=== PATIENT | male | born 1940 | race Caucasian/White ===

== ENCOUNTER 2016-11-22 13:17 | Inpatient (IN) | payer OTHER ==
[2016-11-22] VITALS (22 sets, daily range): BP systolic 100–143; BP diastolic 54–100
[~2016-11-22] VITALS: Ht 188 cm; Wt 62.6 kg
--- NOTE | ~2016-11-22 | HC ---
[facility] [place] [place] [address] CONSULTATION Name: PANCHITO LOTT Room #: 246-P [facility] IN .R.#: [id number] Admission: 11/22/16 Attend Phys: Estela Levin Discharge: Date of : 42 Report #: [id number] THIS REPORT FOR: //name// CC: Murali Levin MD DATE OF SERVICE: 11/23/2016 PATIENT OF: Dr. Murali Simmons and Dr. Levin. CHIEF COMPLAINT: This is a very pleasant 76-year-old white male, whom we were asked to evaluate for heme positive stools and anemia on presentation of 6 grams. He has been transfused with 2 units of packed cells and is up to 9.5 grams at this time. The patient denies any bright red blood, maroon stools or melena. He denies any hematemesis. He has had no change in his bowel habits. PAST MEDICAL HISTORY: Significant for peripheral vascular disease and that is what initially led him to the hospital at [facility]. He had been having some chronic ulcerations of his right lower extremity stump, status post bilateral below-knee amputations, and then his right leg became cold and painful. He went to the emergency room and was found to have an occluded right femoral artery. Other past medical history includes hyperlipidemia, hypertension, chronic obstructive pulmonary disease, diabetes mellitus, myocardial infarction x 2, and now he has another myocardial infarction as a non-STEMI with a troponin of 3.3 and no cardiac intervention is anticipated. So, he does have a history of coronary artery disease. He also has a history of chronic kidney disease and over the last 7 years, his creatinine has slowly resumed to a level of 4.2. 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 He has left hemiparesis. He has a history of urinary retention. He has had history of anemia and has been on iron and his iron levels are normal at this time. PAST SURGICAL HISTORY: Significant for bilateral below-knee amputations. ALLERGIES: No known drug allergies. MEDICATIONS: At home included aspirin, , Plavix, tamsulosin, amlodipine, iron, isosorbide, magnesium, metoprolol, multiple vitamins, Zantac, carvedilol, clonidine, hydralazine, sodium bicarbonate, and Tradjenta. In the hospital he is on Pepcid, Protonix, heparin, Lispro insulin, Tylenol, heparin drip, nitroglycerine, Zofran, MiraLax, Kayexalate, IV vancomycin and Ambien. He is not on any medications currently for his C. diff, but we will get him started on some vancomycin p.o. [address] [address] CONSULTATION Name: KAYLIEPANCHITO Room #: 246-P [facility] IN .R.#: [id number] Admission: 11/22/16 Attend Phys: Estela Levin Discharge: Date of : 42 Report #: [id number] SOCIAL HISTORY: Does not smoke, does not drink alcohol. He is a long-term resident. FAMILY HISTORY: Denies any history of colon polyps, colon cancer, Crohn's disease or ulcerative colitis, but I am not certain that this patient is a good historian with regard to his family history. REVIEW OF SYSTEMS: He denied any dysphagia, odynophagia, gastroesophageal reflux, hiatal hernia, peptic ulcer disease. He denied nausea, vomiting, change in appetite, change in weight, jaundice, hepatitis, cholelithiasis, cholecystitis or pancreatitis. He denied any change in bowel habits. He denies hematemesis, hematochezia or melena. He denies any abdominal pain. PHYSICAL EXAMINATION: GENERAL: Reveals a well-developed, very-very thin 76-year-old white male who is in no obvious distress at the time of my examination. He denies any pain in his leg or elsewhere. HEENT: He is normocephalic, atraumatic and anicteric. HEART: Rate and rhythm are regular. LUNGS: Clear, but with decreased breath sounds bilaterally. ABDOMEN: Soft and scaphoid. Bowel sounds are present in all 4 quadrants. There is no palpable organomegaly or mass. There is no tenderness, rebound or guarding. EXTREMITIES: Below-knee amputations with some ulceration on the stump. His right leg is cold. NEUROLOGIC: I did not test him. He appears to have a little contracture that is chronic of the left hand. SIGNIFICANT LABORATORY DATA: On admission to [facility], his potassium was 5.5, but was over 6 down at [facility]. CO2 is 20, BUN 66, creatinine down to 4.24 from 4.5 on admission. AST is 75, ALT 36, total bilirubin is 0.4, alkaline phosphatase 251, calcium 6.8, and albumin 1.3. CPK is 554. Troponin is 3.33. Iron saturation is 36. APTT is 63.2 on a heparin drip. White count 7.8, hemoglobin 9.5, hematocrit 27.8, indices are normal, RDW 14.7, and platelet count 60,000. He is positive for MRSA and positive for C. diff. He has 2+ proteinuria, high pH with greater than 9.0. He has many white cells and bacteria in his urine and 3+ leukocytes, but nitrites are negative. He also has a more of his phosphates and triple phosphates in his urine. Stool is heme positive. IMPRESSION: 1. Severe anemia with heme-positive stools. Hemoglobin now 9.5 after transfusion of 2 units packed cells. Initial hemoglobin was 6. 2. Protein caliber malnutrition, height 6 foot 2 inches and weight 125 pounds. 3. Acute clostridium difficile diarrhea. 4. Positive methicillin-resistant Staphylococcus aureus. [facility] [address] [place] [address] CONSULTATION Name: PANCHITO LOTT Room #: 246-P [facility] IN [facility].#: [id number] Admission: 11/22/16 Attend Phys: Estela Levin Discharge: Date of : 41 Report #: [id number] 5. Chronic renal disease, declining over several years. Current creatinine of 4.2. 6. Chronic urinary retention. He has Sharpe catheter. He has hyperkalemia present on admission at [facility], was treated with Kayexalate. 7. Acute xvp-NL-zoxhwjggc myocardial infarction, troponin 3.3. 8. History of two previous myocardial infarctions. 9. History of cerebro vascular accident with left-sided paralysis. 10. History of a hyperlipidemia. 11. Hypertension. 12. Diabetes mellitus. 13. Chronic obstructive pulmonary disease. 14. Elevated alkaline phosphatase. 15. Elevated AST. 16. Thrombocytopenia, 71,000 platelets. 17. Peripheral arterial disease with bilateral below-knee amputations and now with ischemia of the right stump. RECOMMENDATIONS: My recommendations are as follows: 1. We will proceed with EGD today. The patient is agreeable with this. He does not think he has ever had a colonoscopy. I am not sure he could even tolerate the prep at this time. We will keep him n.p.o. for now for EGD. 2. Continue proton pump inhibitors. 3. We will start oral vancomycin for a C. diff and ID consult for Dr. Powell and for Dr. Harley to see the patient. 4. To check GGTP. 5. Follow LFTs and platelet count. Thank you very much once again for allowing me to participate in his care. <ELECTRONICALLY SIGNED> By: Jojo Potts DO 11/23/16 1431 1059 1331 Jojo Potts DO /nt
--- NOTE | ~2016-11-22 | HC ---
[facility] [place] [place] [address] CONSULTATION Name: PANCHITO LOTT Room #: 246-P [facility] IN ..#: [id number] Admission: 11/22/16 Attend Phys: Estela Levin Discharge: Date of : 41 Report #: [id number] THIS REPORT FOR: //name// CC: Murali Levin DATE OF SERVICE: 11/24/2016 CHIEF COMPLAINT: Multiple ulcerations and ischemic right lower extremity. HISTORY OF PRESENT ILLNESS: This is a 76-year-old white male patient, admitted on 11/22/2016 with ischemia to his right leg. He has had prior bilateral below knee amputations. Has had multiple ulcerations. He is scheduled for a right above knee amputation later today. PAST MEDICAL HISTORY: Positive for diabetes mellitus, hypertension, peripheral vascular disease, cerebrovascular accident with left-sided weakness. He has chronic kidney disease stage 5, history of hyperkalemia, severe peripheral vascular disease. MEDICATIONS: Include tamsulosin, amlodipine, atorvastatin, aspirin, Plavix, iron, Isordil, magnesium, metoprolol, ranitidine, carvedilol, clonidine, hydralazine, bicarbonate and Tradjenta. ALLERGIES: None. FAMILY HISTORY: Unknown. SOCIAL HISTORY: The patient lives in a local nursing care facility. REVIEW OF SYSTEMS: Unobtainable due to the patient's condition. He is unable to answer any questions at this time. PHYSICAL EXAMINATION: VITAL SIGNS: At this time include temperature 94.4 axillary; pulse rate 76; respiratory rate 21, blood pressure 102/66, oxygen saturation 96%. GENERAL: This is a chronically ill-appearing, almost cachectic appearing male patient, appears to be mostly somnolent. HEAD: Normocephalic. NECK: Supple. LUNGS: Diminished. HEART: Regular rhythm. ABDOMEN: Soft. EXTREMITIES: Demonstrate bilateral below knee amputations. He has extensive ulcerations and ischemic changes throughout the right stump site and extending on to the knee and medial thigh. Examination of the left side demonstrates [facility] [address] [place] [address] CONSULTATION Name: PANCHITO LOTT Janet Room #: [address] [place] [address] [place] ..#: [id number] Admission: 11/22/16 Attend Phys: Estela Levin Discharge: Date of : 41 Report #: [id number] ulceration and blistering both on the posterior portion of the left BKA stump as well as anteriorly. There is exposed bone. This would raise concern for underlying osteomyelitis. Left hip demonstrates a fairly large stage 4 pressure ulceration with some bony exposure and significant undermining. It is relatively clean and granulating. He has a small stage 4 sacral pressure ulcer, and unstageable pressure ulcer to the left iliac crest. LABORATORY DATA: Includes sodium 144, potassium 3.6, chloride 110, CO2 23, BUN 59, creatinine 4.1, glucose 132, calcium 6.4, phosphorus 4.6, magnesium 2.0, alkaline phosphatase 220, SGPT 35, GGTP 54, albumin is very low at 1.2. White blood cell count is 8.9 with hemoglobin 9.6, hematocrit 28.3. Platelet count is 48,000. CLINICAL IMPRESSION: 1. Ischemia and ulceration of the right lower extremity. 2. Severe peripheral arterial disease. 3. Stage 4 pressure ulcer to the left greater trochanter. 4. Stage 4 pressure ulcer to the sacrum. 5. Unstageable pressure ulcer to the right iliac crest. 6. Ulcerations to the left below amputation with concern for underlying osteomyelitis. 7. Flexion contractures of bilateral knees. 8. Coronary artery disease. 9. Diabetes mellitus. 10. Chronic obstructive pulmonary disease. 11. Severe protein-calorie malnutrition. RECOMMENDATIONS: The patient is going for an above knee amputation today. Clearly the right leg is not going to be salvageable. He is going to have ongoing problems with wound healing in the left side due to the flexion contracture of the knee. It is unlikely that this area would heal. He may at some point require a higher level amputation on the left as well. We will recommend topical quarter-strength Dakin moist gauze to left hip, bordered foam to the sacrum and iliac crest. Postoperative dressings will be evaluated after he returns from the operating room, involving the right lower extremity. He will need aggressive nutritional support, turning, repositioning every 2 hours. I appreciate being asked to see him in consultation. <ELECTRONICALLY SIGNED> By: Kalia Garrido MD 11/24/16 1122 1013 1059 Kalia Garrido MD /nt
--- NOTE | ~2016-11-22 | HC ---
[facility] [address] [address] CONSULTATION Name: PANCHITO LOTT Room #: 246-P [facility] IN .R.#: [id number] Admission: 11/22/16 Attend Phys: Estela Levin Discharge: Date of : 41 Report #: [id number] THIS REPORT FOR: //name// CC: Murali Levin REASON FOR CONSULTATION: I was asked to evaluate concerning ischemic right lower extremity and C. difficile colitis. HISTORY OF PRESENT ILLNESS: The patient is a 76-year-old who was admitted from [facility] with right femoral artery occlusion. Onset of right BKA stump pain yesterday. Now has a discoloration and a cold leg. In addition to that, he has had diarrhea that is C. difficile positive. He has developed acute renal failure. Has marked anemia, down to 6.7. Thrombocytopenia. He was unable to give me any further details. It is evident that he has chronic kidney disease with a creatinine of 4 about a year ago. PAST MEDICAL HISTORY: Diabetes, hypertension, stroke with left-sided hemiparesis. Coronary artery disease with TN. ALLERGIES: None known. MEDICATIONS: As noted on his MAY, now on enteral vancomycin. FAMILY HISTORY: Noncontributory. SOCIAL HISTORY: Living in [place] [facility] in [place], [place]. REVIEW OF SYSTEMS: There has been no cough or sputum production. No abdominal pain, nausea or vomiting. PHYSICAL EXAMINATION: VITAL SIGNS: Afebrile, heart rate 80, blood pressure 142/82. Room air saturation was 100%. ACCESS: IV site was unremarkable, an indwelling Sharpe catheter. HEENT: Unremarkable. NECK: Supple. LUNGS: Clear. HEART: Regular, without murmur. ABDOMEN: Firm, nontender, no hepatosplenomegaly or mass. I could not palpate a pulse in his right groin. His right lower extremity BKA was ecchymotic up to his knee. Stump was cold. Sugar were some bloody drainage to the wound distally. He also had a shallow wound to the stump of his left lower extremity. Pulse in this left side femoral region was a 2+. He had a fairly large wound to his left greater trochanter. I was unable to roll him over to look at his sacrum. [facility] [address] [place] [address] CONSULTATION Name: PANCHITO LOTT Room #: [facility] [place] [facility].#: [id number] Admission: 11/22/16 Attend Phys: Estela Levin Discharge: Date of : 41 Report #: [id number] LABORATORY STUDIES: Sodium 144, potassium 4.5, bicarbonate of 20, creatinine was 4.2, AST 75, bilirubin 0.4, alkaline phosphatase 251, ALT 36, albumin of 1.3. Troponin 3.3. Hemoglobin 9.5 up from 6.4 on admission; white count 7.8; platelet count 60,000. MRSA screen positive. C. difficile PCR was positive. I did not have a differential on the CBC. Urinalysis, many wbc's, rbc's and bacteria. There is no urine or blood cultures yet obtained. IMPRESSION: Underlying diabetic with cardiac and vascular disease with ischemia of the right lower extremity, anemia, non-ST elevation myocardial infarction, chronic kidney disease, hypertension with urinary tract infection and Clostridium difficile colitis contributing to the right lower extremity ischemia. Recommend culturing blood and urine. Begin broad antibiotic coverage and antibiotic coverage for Clostridium difficile colitis. Obtain the differential. Further imaging studies of his right lower extremity per Cardiovascular, Medicine and Surgery. Cardiovascular surgery has also seen the patient and is following. <ELECTRONICALLY SIGNED> By: Darci Harley MD 11/24/16 1613 1254 1502 Darci Harley MD /nt
--- NOTE | ~2016-11-22 | P ---
[facility] [place] [place] [address] PROCEDURE REPORT Name: PANCHITO LOTT Room #: 246-P [facility] IN M.R.#: [id number] Admission: 11/22/16 Attend Phys: Estela Levin Discharge: Date of : 41 Report #: [id number] THIS REPORT FOR: //name// CC: Murali Levin MD DATE OF SERVICE: 11/23/2016 PROCEDURE: Diagnostic EGD. PATIENT OF: Dr. Murali Simmons and Dr. Estela Levin. INDICATION FOR PROCEDURE: This patient has had a drop in hemoglobin, uncertain etiology. He has been on Plavix. He denies any hematemesis, hematochezia, or melena, but he does have heme positive stool. He has had a very recent non-STEMI acute myocardial infarction. Informed consent for this procedure was obtained prior to the administration of any medication. The risks of the procedure, which include bleeding, perforation, infection, complications of sedation, and the possibility I could miss something have been explained to the patient and he has indicated his consent to me and his consent for the procedure was obtained from his DPOA. Propofol was slowly titrated before and during this procedure for the patient comfort by the anesthesia service. The Track the Betn upper videoscope was introduced through the upper esophageal sphincter and advanced under direct visualization to the descending duodenum. Findings are noted on withdrawal of the scope. The second portion of the duodenum appears normal. The portion of the duodenum just distal to the bulb is edematous, mildly erythematous and obstructs the lumen somewhat. The scope passes easily through this area, so there was no evidence of any obstruction here. I do not see any ulcerations in the folds involving this edema, but I suspect there is some kind of inflammation here. The duodenal bulb shows some patchy erythema. Pylorus, normal mucosa. Antrum, normal mucosa. Body, normal mucosa. Cardia and fundus, normal mucosa. Retroflex view did not reveal any abnormalities. The scope was withdrawn into the esophagus. The Z-line is appropriately located at the top of the gastric folds and appears normal. The esophageal mucosa appears normal throughout its entirety. The scope was withdrawn. The patient was recovered in his room in intensive care. He tolerated the procedure well. IMPRESSION: Edematous area in the post-bulbar region, uncertain etiology. We will check a stool for H. pylori antigen. We will continue the proton pump inhibitors. We will start him on a full liquid diet, advance as tolerated. We will monitor his H and H closely. Currently, he is on Plavix, so no biopsies [address] [address] PROCEDURE REPORT Name: PANCHITO LOTT Janet Room #: 246-P [facility]..#: [id number] Admission: 11/22/16 Attend Phys: Estela Levin Discharge: Date of : 41 Report #: [id number] were done. Thank you very much once again for allowing me to participate in his care, Dr. Levin and Dr. Simmons. <ELECTRONICALLY SIGNED> By: Jojo Potts DO 11/23/16 2353 1435 1613 Jojo Potts DO /nt
--- NOTE | ~2016-11-22 | EKG ---
[address] [place] [address] ELECTROCARDIOGRAM REPORT Name: PANCHITO LOTT Room #: 246-P [facility] IN M.R.#: [id number] Admission: 11/22/16 Attend Phys: Estela Levin Discharge: Date of : 41 Report #: [id number] THIS REPORT FOR: //name// [facility] Test Date: 2016-11-22 Test Time: 21:20:37 Pat Name: PANCHITO LOTT Department: Room: 246 P Gender: M Coil Inspector: Letitia SHAFFER : 1940 Requested By: Luis Crow Order Number: [id number] MD: Christian Mock Measurements Intervals [place] Rate: 80 P: 56 KS: 248 QRS: -100 QRSD: 146 T: 45 QT: 465 QTc: 537 Interpretive Statements Sinus rhythm Prolonged [place] interval Right bundle branch block Probable lateral infarct, old No previous ECG available for comparison Electronically Signed On 11-23-2016 8:22:25 CDT by Christian Mock [email or web address] <ELECTRONICALLY SIGNED> By: Christian Mock MD, [facility] 11/23/16821 19 19 Christian Mock MD, [facility] /EPI
--- NOTE | ~2016-11-22 | EKG ---
[address] [place] [address] ELECTROCARDIOGRAM REPORT Name: PANCHITO LOTT Room #: 246-P ADM IN M.R.#: [id number] Admission: 11/22/16 Attend Phys: Estela Levin Discharge: Date of : 42 Report #: [id number] THIS REPORT FOR: //name// [facility] Test Date: 2016-11-23 Test Time: 06:46:33 Pat Name: PANCHITO LOTT Department: Room: 246 P Gender: M Library Services Assistant: faby : 1940 Requested By: Luis Crow Order Number: [id number] MD: Christian Mock Measurements Intervals [place] Rate: 79 P: 2 TX: 243 QRS: -86 QRSD: 139 T: 69 QT: 466 QTc: 535 Interpretive Statements Sinus rhythm Prolonged [place] interval RBBB and LAFB No previous ECG available for comparison Electronically Signed On 11-23-2016 8:23:11 CDT by Christian Mock [email or web address] <ELECTRONICALLY SIGNED> By: Christian Mock MD, [facility] 11/23/16 0823 0646 0646 Christian Mock MD, [facility] /EPI
--- NOTE | ~2016-11-22 | HC ---
[facility] [place] [address] CONSULTATION Name: PANCHITO LOTT Room #: 246-P ADM IN M.R.#: [id number] Admission: 11/22/16 Attend Phys: Estela Levin Discharge: Date of : 42 Report #: [id number] THIS REPORT FOR: //name// CC: Dinesh Jaime MD DATE OF SERVICE: 11/22/2016 REASON FOR CONSULTATION: Renal failure. HISTORY OF PRESENT ILLNESS: This is a 76-year-old male who was transferred to [facility] today after being seen in the Emergency Room at [place]. He came in because he has bilateral below the knee amputations, but has a cold and an ischemic right thigh, knee, and right xcevb-rme-leqv stump. He is currently in the intensive care unit. The patient is not certain where he is, he is a poor historian. He cannot tell me when his legs were amputated. He says he has never heard of kidney problems before. In spite of that, I was able to document through our outpatient records at the office that he has been followed for many years by Dr. William Jaime, formally of [facility]. The patient has chronic kidney disease, which has been progressive over the years. Looking back at labs, he had a creatinine level a year ago of 4.1. He has had very gradual progression of his elevated creatinine, dating back to at least 2009, which is far back as I can access those records. Over that time, he has had a progressive increase from a creatinine of 1.9 up to the current level of 4. When he was seen in the Emergency Room at [place], he also had a potassium level of 6.1, he was given Kayexalate. Upon arrival here, he had a potassium level of 5.5, bicarbonate of 19, BUN 73, creatinine of 4.5. The patient also has anemia with a hemoglobin of 6.4, hematocrit 19.9 and platelets 71,000. Again, the patient is a poor historian. He states his appetite has been down. He thinks he is losing weight. He says he is just not hungry. Denies nausea or vomiting. Denies dyspnea, cough, chest pain or palpitations. He is chronically incontinent of urine due to urinary retention and has a chronic Sharpe in place. PAST MEDICAL HISTORY: He has had longstanding diabetes mellitus, also longstanding hypertension. 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 MEDICATIONS ON ADMISSION: This is through a compilation of 2 or 3 different lists but from what I can tell, he is on tamsulosin 0.4 mg daily, amlodipine 10 mg daily, aspirin 81 mg daily, atorvastatin 40 mg daily, Plavix 75 mg daily, iron 325 mg daily, isosorbide mononitrate 30 mg daily, magnesium 400 mg daily, metoprolol 25 mg daily, multivitamin daily, ranitidine 150 mg daily, carvedilol [address] [address] CONSULTATION Name: PANCHITO LOTT Janet Room #: 246-P [facility] IN [facility]#: [id number] Admission: 11/22/16 Attend Phys: Estela Levin Discharge: Date of : 41 Report #: [id number] 12.5 mg b.i.d., clonidine 0.2 mg b.i.d., hydralazine 100 mg t.i.d., sodium bicarbonate 650 mg b.i.d., Tradjenta 5 mg daily. ALLERGIES: No known medical allergies. FAMILY HISTORY: Unavailable. SOCIAL HISTORY: The patient has been living in a care center in [place], [place]. REVIEW OF SYSTEMS: Denies dyspnea, cough or chest pain, says his appetite is poor. Denies nausea or vomiting; unaware of bowel habits, says he has a chronic Sharpe in place, has the right leg pain. Unaware of fevers, chills or sweats. PHYSICAL EXAMINATION: GENERAL: Chronically ill debilitated male lying in the ICU. He has a contracture of the left arm, both legs have the BKA as noted above. He is somewhat somnolent. VITAL SIGNS: Blood pressure 146/81, heart rate is in the 80s. HEENT: Shows pupils are equal and reactive. Sclerae are nonicteric. Oral mucosa is moist. NECK: Veins are not distended. Neck is supple. CHEST: Shows shallow respirations bilaterally. I hear no rales, rhonchi or wheezes. HEART: Has a regular rate and rhythm. ABDOMEN: Soft. I hear a few bowel sounds present. There is not much abdominal structure I am able to easily feel a pulsatile aorta in the left side of the abdomen. EXTREMITIES: Show bilateral below the knee amputations, right thigh stump and knee are all cold to the touch and poorly perfused. Left leg and thigh are warmer. Again, he has a contracture to the left, he is able move the left upper extremity and he is able right upper extremity. LABORATORY DATA: Sodium 145, potassium 5.5, chloride 114, bicarbonate 19, BUN 73, creatinine 4.5, glucose 65, total protein 4.3, albumin 1.4, calcium 7.2, total bilirubin 0.3. CPK 686. White count 6.5, hemoglobin 6.4, hematocrit 19.9 and platelets 71,000. ASSESSMENT: 1. Chronic kidney disease stage 5. There is nothing to point to acute kidney injury here. This is all chronic. It has been well demonstrated in our outpatient records. This patient has progressive chronic renal failure. The big question at this time is whether he really is uremic. He has a lack of appetite, but suggests the same. He has very poor muscle mass, so this creatinine level I expect is actually even a representation of worst renal function than we originally thought. He is chronically on bicarbonate, he is [facility] [address] [place] [address] CONSULTATION Name: KAYLIEPANCHITO Room #: 246-P [facility] IN ..#: [id number] Admission: 11/22/16 Attend Phys: Estela Levin Discharge: Date of : 41 Report #: [id number] not particularly acidotic at this time. He does have some mild hyperkalemia, which has already been treated. He has no EKG changes. I will put him on a small amount of IV fluids and we will make a bicarbonate containing IV fluids with the CPK mildly up and having an ischemic leg. 2. Hyperkalemia, mild, no EKG changes. He already got Kayexalate, we will give him a little bit of volume. We will give him a little bicarbonate, this should come down. 3. Anemia, severe; chronically on iron. We will check iron levels and erythropoietin level. This could all be related to his chronic kidney disease more than anything else. 4. Ischemic right leg, evaluation ongoing. He is nonambulatory and he is poorly functional. I cannot imaging any limb salvage maneuvers would be helpful at this point, probably just needs extension of his amputation to and above the knee and/or higher level. 5. Severe peripheral vascular disease. 6. Prior cerebrovascular accident with left hemiparesis. It is pertinent that I talk to the IV nurse. He actually has an arm that would be amenable to getting an upper arm graft placed on the left, which is his arm that has the CVA, so we could use the right arm for IV access today. 7. Overall, the patient appears to be in fairly poor condition chronically. I am not able to have much of a discussion with him but when we did talk about it, he has heard of dialysis before and said that if need be, he would want to do dialysis, although at this point I cannot imagine this patient being on chronic dialysis. We will see how he responds overnight and make further decisions on upcoming days. We will standby in his care. <ELECTRONICALLY SIGNED> By: Lencho Fisher MD 11/26/16 0829 [id number] Lencho Fisher MD /nt
--- NOTE | ~2016-11-22 | O ---
[facility] [place] [address] OPERATIVE REPORT Name: PANCHITO LOTT Room #: 246-P [facility] IN M.R.#: [id number] Admission: 11/22/16 Attend Phys: Estela Levin Discharge: Date of : 41 Report #: [id number] THIS REPORT FOR: //name// CC: Murali Troy Estela Levin DATE OF SERVICE: 11/24/2016 PREOPERATIVE DIAGNOSIS: Right leg gangrene. POSTOPERATIVE DIAGNOSIS: Right leg gangrene. PROCEDURE: Right peksw-qxo-rtzj amputation. SURGEON: Markie Hernandez MD MAGNETIC PROSPECTOR: TONY Rivera ANESTHESIA: General. ESTIMATED BLOOD LOSS: Minimal. DRAINS: . TOURNIQUET TIME: Zero, there was no tourniquet. DESCRIPTION OF PROCEDURE: The patient was brought to the operating room where he was placed under general anesthesia. Once under adequate general anesthesia, his right lower extremity was prepped and draped in sterile manner. The extremity was then approached through a fishmouth type incision through the mid thigh. Dissection was carried down to the adductor canal where the vessels were then identified, clamped, and suture ligated with 0 silk suture. Sharp dissection was taken down to the bone and the bone was then transected with an oscillating saw. Once complete, the wound was irrigated copiously and closed with #1 Vicryl to bring the adductors over to the femur as a myodesis. One Vicryl was then used to close the deep fascia, 2-0 Vicryl in subcutaneous tissues and rita were used for the skin. A Hemovac drain had been placed prior to wound closure. There were no complications from the procedure. Wound was dressed with Xeroform, 4 x 4s, and sterile soft compressive dressing was placed. There were no complications from the procedure. The patient tolerated the procedure well and went to the intensive care unit without incident. By: [id number] [id number] Markie Hernandez MD /nt
--- NOTE | ~2016-11-22 | 2DMMODE ---
[facility] [address] [place] [address] 2 D/M-MODE ECHOCARDIOGRAM Name: PANCHITO LOTT Room #: 246-P [facility] IN ..#: [id number] Admission: 11/22/16 Attend Phys: Estela Carvalho Discharge: Date of : 42 Date of Service: 11/23/16 1011 Report #: [id number] THIS REPORT FOR: //name// APPROVED REPORT Study performed: 11/23/2016 08:24:13 EXAM: Comprehensive 2D, Doppler, and color-flow Echocardiogram Patient Location: Bedside Room #: 246 Status: routine BSA: 1.71 HR: 105 bpm BP: 103/68 mmHg Other Information Study Quality: Technically Limited Indications Chest Pain 2D Dimensions RVDd: 33.88 mm LVEF(%): 68.54 (>50%) IVSd: 18.95 (7-11mm) LVOT Diam: 21.55 (18-24mm) LVDd: 48.68 mm PWd: 15.59 (7-11mm) Ascending Ao: 35.59 (22-36mm) LVDs: 29.98 (25-40mm) Aortic Root: 33.23 mm Albarado's LVEF: 68.54 % Volumes Left Atrial Volume (Systole) Single Plane 4CH: 64.85 mL Single Plane 2CH: 76.73 mL LA ESV Index: 46.00 mL/m2 Aortic Valve AoV Peak Chris.: 1.37 m/s AO Peak Gr.: 7.48 mmHg LVOT Max P.10 mmHg LVOT Max V: 0.88 m/s IRAIDA Vmax: 2.35 cm2 Mitral Valve IVRT: 83.04 ms Pulmonary Valve [facility] [address] [address] 2 D/M-MODE ECHOCARDIOGRAM Name: PANCHITO LOTT Janet Room #: [address] [place] [address] [place] [facility]#: [id number] Admission: 11/22/16 Attend Phys: Estela Carvalho Discharge: Date of : 42 Date of Service: 11/23/16 1011 Report #: [id number] PV Peak Chris.: 0.65 m/s PV Peak Gr.: 1.71 mmHg Tricuspid Valve TR Peak Chris.: 2.83 m/s RAP Estimate: 5.00 mmHg TR Peak Gr.: 32.12 mmHg PA Pressure: 37.00 mmHg Left Ventricle The left ventricle is normal size. Hypokinesis involving the mid to distal anterolateral wall, septum, and apex. Moderate concentric left ventricular hypertrophy. The left ventricular systolic function is moderately depressed LVEF is 35-40%. This study is not technically sufficient to allow evaluation of the LV diastolic function. Right Ventricle The right ventricle is normal size. The right ventricular systolic function is normal. Atria Left atrium is dilated. The right atrium size is normal. Aortic Valve Aortic valve is calcified. Trace aortic regurgitation. No stenosis Mitral Valve Mitral valve leaflets are thickened. Mild mitral annular calcification There is no mitral valve regurgitation noted. No evidence of mitral valve stenosis. Tricuspid Valve The tricuspid valve is normal in structure. There is trace tricuspid regurgitation. The right atrial pressure is estimated at 5 mmHg. There is mild pulmonary hypertension. Pulmonic Valve The pulmonary valve is normal in structure. There is no pulmonic valvular regurgitation. Great Vessels The aortic root is normal in size. IVC is not well visualized. Pericardium There is no pericardial effusion. Left pleural effusion noted. [facility] [address] [place] [address] 2 D/M-MODE ECHOCARDIOGRAM Name: PANCHITO LOTT Room #: 246-P [facility] IN .R.#: [id number] Admission: 11/22/16 Attend Phys: Estela Carvalho Discharge: Date of : 42 Date of Service: 11/23/16 1011 Report #: [id number] <Conclusion> The left ventricular systolic function is moderately depressed Hypokinesis involving the mid to distal anterolateral wall, septum, and apex. Moderate concentric left ventricular hypertrophy. LVEF 35-40%. Left atrium is dilated. Aortic valve is calcified. No stenosis. Trace insufficiency Mitral valve leaflets are thickened. Mild mitral annular calcification. No mitral valve regurgitation noted. Pulmonary artery pressure of 40mmHg There is no pericardial effusion. <ELECTRONICALLY SIGNED> By: Christian Mock MD, [facility] 11/23/16 1011 1011 1011 Christian Mock MD, [facility] /INF
--- NOTE | ~2016-11-22 | HC ---
[facility] [place] [address] CONSULTATION Name: PANCHITO LOTT Janet Room #: 455-P [facility] IN ..#: [id number] Admission: 11/22/16 Attend Phys: Estela Levin Discharge: 11/28/16 Date of : 41 Report #: [id number] THIS REPORT FOR: //name// CC: Murali Levin PAST MEDICAL HISTORY: Hypertension, hyperlipidemia, peripheral vascular disease, diabetes, prior stroke with subsequent contracture, bilateral below-knee amputation, bedridden status, history of recent right femoral artery occlusion, history of myocardial infarction, acute renal insufficiency, chronic kidney disease, anemia, thrombocytopenia, gastroesophageal reflux disease, COPD, chronic malnutrition. SOCIAL HISTORY: The patient presently lives in a fdc. He states he has a and he has a son who visits him. Denies any recent tobacco, alcohol or drug abuse. MEDICATIONS: Vancomycin, Lipitor, Zosyn, nitroglycerin, metoprolol, Protonix, insulin, heparin which was recently discontinued, Tylenol, these are inpatient medications. PAST SURGICAL HISTORY: Previous bilateral below-knee amputations, which he states were done greater than 10 years ago. There were medical records to suggest this was in 1973 as a result of complications from diabetes. ALLERGIES: No known drug allergies. FAMILY HISTORY: Noncontributory. REVIEW OF SYSTEMS: CONSTITUTIONAL: Positive for recent right leg pain. Positive for malnutrition. He denies fever or chills or diaphoresis. EYES: Denies any eye pain. HENT: Denies ear infections or headache. RESPIRATORY: He has a cough currently, denies shortness of breath. CARDIOVASCULAR: He presently denies chest pain or palpitations. GASTROINTESTINAL: He denies any abdominal pain, nausea or vomiting presently. There is a history of anemia that required EGD earlier today. GENITOURINARY: He is being treated for the urinary tract infection, but denies urgency or burning. He has a Sharpe catheter in place. MUSCULOSKELETAL: He states he does not have significant pain presently. SKIN: Positive open wounds on the right lower extremity. NEUROLOGICAL: He is wheelchair dependent and primarily bedbound. He denies numbness or tingling presently. PSYCHIATRIC: Denies any hallucinations. ENDOCRINE: Denies unexplained weight gain or loss. HEMATOLOGIC: He is noted to have bruising recently as well as anemia. [address] [address] CONSULTATION Name: PANCHITO LOTT Janet Room #: 455-P [facility] IN ..#: [id number] Admission: 11/22/16 Attend Phys: Estela Levin Discharge: 11/28/16 Date of : 41 Report #: [id number] ALLERGY AND IMMUNOLOGY: Denies any rashes or pruritus. HISTORY OF PRESENT ILLNESS: The patient is a 76-year-old male with multiple medical comorbidities including diabetes, COPD, peripheral arterial disease, prior stroke, prior below-knee amputation bilaterally and presented to this hospital yesterday; comes with report of a right femoral arterial occlusion. He, at that time, was having significant pain in his right leg. He was evaluated by Vascular Surgery who felt that there was no intervention that was warranted due to his significant medical risks, overall health and poor distal vascularity. He has a nonhealing wound on the right leg and has recently developed some purple discoloration of the leg. Pain has improved since his initial presentation. He was placed on heparin drip, this has been discontinued. He underwent EGD earlier today and discussion is for possible colonoscopy as well due to anemia and concerns of GI bleeding. PHYSICAL EXAMINATION: VITAL SIGNS: Temperature most recently 36.6, T-max 36.9, blood pressure 104/65, pulse 83, respiration rate 15. GENERAL: This is a very cachectic, thin and frail appearing, lying supine in the hospital bed. He is awake, alert and oriented, in no acute distress. He communicates appropriately. HEENT: He makes good eye contact. He is noted to have poor dentition and temporal wasting. EXTREMITIES: Bilateral upper extremities show no signs of acute orthopedic pathology. Left lower extremity, he has a palpable femoral pulse. He has a superficial wound over the distal end of the residual limb, which measures 2 x 2 cm and is dressed with wound care. There is no sign of infection. Right lower extremity with palpable femoral pulse. No sensory changes. There are skin changes noted with purple bruising along the thigh and along the distal portion of the residual limb. There is muscle wasting present. He has flexion contracture of the knee and of the hip. There is a large wound superficially at the residual limb with a foul odor and has a chronic nonhealing appearance to it. LABORATORY VALUES: White blood cell count 7.8, platelet count 60, hematocrit 27.8 after receiving blood transfusion. IMAGING: No present imaging. MICROBIOLOGY: Blood cultures are negative thus far. ASSESSMENT: A 76-year-old male with multiple medical comorbidities, peripheral arterial disease status post prior bilateral below-knee amputations with the nonhealing wound in the right lower extremities. He presented to this hospital with report of a femoral artery occlsio in severe pain. His pain is improved at time of evaluation and records indicate he [address] [address] CONSULTATION Name: PANCHITO LOTT Room #: 455-P [facility] IN [facility]#: [id number] Admission: 11/22/16 Attend Phys: Estela Levin Discharge: 11/28/16 Date of : 41 Report #: [id number] has a palpable femoral pulse. PLAN: I had a discussion with the patient about his leg. Due to his poor vascularity, we are in agreement with the Vascular Service that there is a low likelihood that this wound will heal on its own. Therefore, I recommended to the patient definitive treatment as an above-knee amputation. The patient understands that there is a risk of increasing pain as well as infection and sepsis in the condition of the leg. For these reasons, he requested proceeding with surgery. I discussed with him the significant risk involved with his medical comorbidity including bleeding, pulmonary disease including . He understands these risks and wished to move forward. I also called his son and discussed with him his father's wishes and answered his questions at the patient's request. We will plan on moving forward with surgery when we are able and are considering tomorrow. <ELECTRONICALLY SIGNED> By: Walt Sen MD 12/01/16 0804 17 0300 Walt Sen MD /nt
--- NOTE | ~2016-11-22 | S ---
[facility] [place] [address] SURGICAL PATH RPT PROCEDURE Name: PANCHITO LOTT Room #: 455-P [facility] IN M.R.#: [id number] Admission: 11/22/16 Date of : 42 Discharge: 11/28/16 Report #: [id number] Path Case #: [id number] PATHOLOGY REPORT COLLECTION DATE: 11/24/2016 RECEIVED DATE: 11/24/2016 SUBMITTING PHYS: Dr. Markie Hernandez OTHER PHYS: Dinesh Alcaraz MD SPECIMEN(S) RECEIVED: A.Right leg * * * * * * * * * * * * FINAL DIAGNOSIS: "Right leg", amputation: - Skin and subcutaneous tissue with infarction, fat necrosis and subepithelial fresh hemorrhage; surgical margins without significant inflammation. - Skeletal muscle with marked atrophy. - Vessels with marked calcific atherosclerosis. (CLW:micaela; 11/28/2016) PATHOLOGIST: Analilia Hebert M.D. REPORT ELECTRONICALLY SIGNED BY: Analilia eHbert M.D. DATE/TIME: 11/28/2016 22:55 * * * * * * * * * * * * GROSS PATHOLOGY: The specimen is received in formalin, labeled "Panchito Lott, right leg" and consists of a leg (stump) amputated above the knee. The specimen is status post below knee amputation. It measures 31 cm from proximal cutaneous margin to stump and varies in diameter from 7.0 cm to 11.0 cm. There is 3.5 cm of femur extending above the cutaneous/soft tissue margins. The distal and (stump) shows a black iraheta and red maroon discoloration consistent with gangrene measuring up to 6.5 cm greatest dimension. There is black discoloration over the patella measuring 3.7 cm in greatest dimension. There is marked skin sloughing identified. There are no open wounds. The vascular margin (popliteal artery) is markedly occluded with at least 95% stenosis of lumen. Sectioning the distal end reveals underlying soft tissue necrosis. The vascular structures of the lower leg show marked atherosclerosis with at least 90% stenosis of lumina. No soft tissue lesions are identified. The surgical margin shows areas of viable tissue and grossly nonviable tissue. Home School Teacher sections are submitted A1-A4. A1 popliteal artery (decal) [address] [place] [address] SURGICAL PATH RPT PROCEDURE Name: PANCHITO LOTT Room #: [address] [place] [address]#: [id number] Admission: 11/22/16 Date of : 41 Discharge: 11/28/16 Report #: [id number] Path Case #: [id number] A2 vascular structures lower leg (decal) A3 gangrene A4 margin (skin and skeletal muscle) (ALEJO; 11/27/2016) CLINICAL HISTORY: Gangrene right leg INITIAL CPT CODE(S): A; 54239, 57167 Professional services performed by [facility] at [address] [place] [place] [address] Technical services performed by [facility] at [address] [place] [address], [address], [place] [address]. [facility] [address] [place] [address] PHONE: [phone] DIRECTOR: Zacarias Weinberg M.D. * * * END OF REPORT * * *
[2016-11-22 17:11] LABS: RDW 15.1 % (10.5-14.5)
[2016-11-22 17:13] LABS: MCH 30.3 pg (26.0-34.0); MCHC 32.4 g/dL (28.0-37.0); MCV 93.6 fL (80.0-100.0); RBC 2.13 mil/uL (4.50-6.00); WBC 6.5 thou/uL (4.0-11.0)
[2016-11-22 17:18] LABS: HEMATOCRIT 19.9 % (42.0-52.0); HEMOGLOBIN 6.4 gm/dL (14.0-18.0)
[2016-11-22 17:24] LABS: ALBUMIN 1.4 g/dL (3.4-5.0); CALCIUM 7.2 mg/dL (8.5-10.1); CREATININE 4.5 mg/dL (0.7-1.3); POTASSIUM 5.5 mmol/L (3.5-5.1); TOTAL BILIRUBIN 0.3 mg/dL (<0.1-1.0); TOTAL PROTEIN 4.3 g/dL (6.4-8.2)
[2016-11-22 18:52] LABS: % SATURATION 36 % (20-39); IRON 24 ug/dL (65-175); TIBC 67 ug/dL (250-450); UIBC 43 ug/dL
[2016-11-22 19:54] LABS: URINE BILIRUBIN NEGATIVE (Negative); URINE BLOOD 2+ (Negative); URINE COLOR YELLOW; URINE GLUCOSE-RANDOM* NEGATIVE (Negative); URINE KETONES NEGATIVE (Negative); URINE NITRITE NEGATIVE (Negative); URINE PROTEIN (DIPSTICK) 2+ (Negative); URINE SPECIFIC GRAVITY <= 1.005 (1.003-1.035); URINE UROBILINOGEN 0.2 E.U./dl (0.2-1.0)
[2016-11-22 20:08] LABS: BACTERIA >30 Many /HPF (None Seen); CASTS None Seen /LPF (None Seen); SQUAMOUS 0-3 Few /LPF (0-3); URINE RBC >20 Many /HPF (0-2); URINE WBC >25 Many /HPF (0-5)
[2016-11-22 20:09] LABS: AMORPHOUS PHOSPHATES Many /LPF (None Seen)
[2016-11-23] VITALS (119 sets, daily range): BP systolic 67–153; BP diastolic 33–102
[2016-11-23 02:43] LABS: HEMATOCRIT 27.8 % (42.0-52.0); HEMOGLOBIN 9.2 gm/dL (14.0-18.0)
[2016-11-23 05:09] LABS: HEMATOCRIT 27.8 % (42.0-52.0); HEMOGLOBIN 9.5 gm/dL (14.0-18.0); MCH 30.8 pg (26.0-34.0); MCHC 34.3 g/dL (28.0-37.0); MCV 89.7 fL (80.0-100.0); RBC 3.1 mil/uL (4.50-6.00); RDW 14.7 % (10.5-14.5); WBC 7.8 thou/uL (4.0-11.0)
[2016-11-23 05:27] LABS: ALBUMIN 1.3 g/dL (3.4-5.0); CALCIUM 6.8 mg/dL (8.5-10.1); CREATININE 4.2 mg/dL (0.7-1.3); PHOSPHORUS 5.3 mg/dL (2.5-4.9); POTASSIUM 4.5 mmol/L (3.5-5.1); TOTAL BILIRUBIN 0.4 mg/dL (<0.1-1.0); TOTAL PROTEIN 4.1 g/dL (6.4-8.2)
[2016-11-24] VITALS (19 sets, daily range): BP systolic 75–122; BP diastolic 43–72
[2016-11-24 04:44] LABS: HEMATOCRIT 28.3 % (42.0-52.0); RBC 3.18 mil/uL (4.50-6.00)
[2016-11-24 04:46] LABS: HEMOGLOBIN 9.6 gm/dL (14.0-18.0); MCH 30.2 pg (26.0-34.0); MCV 89.1 fL (80.0-100.0); RDW 14.9 % (10.5-14.5); WBC 8.9 thou/uL (4.0-11.0)
[2016-11-24 04:53] LABS: ALBUMIN 1.2 g/dL (3.4-5.0); CALCIUM 6.4 mg/dL (8.5-10.1); CREATININE 4.1 mg/dL (0.7-1.3); PHOSPHORUS 4.6 mg/dL (2.5-4.9); POTASSIUM 3.6 mmol/L (3.5-5.1)
[2016-11-24 04:56] LABS: ALBUMIN 1.2 g/dL (3.4-5.0); DIRECT BILIRUBIN 0.1 mg/dL (<0.1-0.3); TOTAL BILIRUBIN 0.4 mg/dL (<0.1-1.0); TOTAL PROTEIN 3.7 g/dL (6.4-8.2)
[2016-11-24 05:03] LABS: MANUAL DIFF YES
[2016-11-24 08:39] LABS: ABSOLUTE NEUTROPHILS 8.5 thou/uL (1.4-8.2); PLATELET COUNT 48 thou/uL (150-400); PLATELET ESTIMATE DECREASED; TOTAL CELL COUNT 100
[2016-11-24 17:05] LABS: URINE BILIRUBIN NEGATIVE (Negative); URINE BLOOD 2+ (Negative); URINE COLOR YELLOW; URINE GLUCOSE-RANDOM* NEGATIVE (Negative); URINE KETONES NEGATIVE (Negative); URINE PROTEIN (DIPSTICK) 1+ (Negative); URINE UROBILINOGEN 0.2 E.U./dl (0.2-1.0)
[2016-11-24 17:06] LABS: URINE LEUKOCYTES-REFLEX 3+ (Negative)
[2016-11-24 17:25] LABS: CASTS None Seen /LPF (None Seen); CRYSTALS None Seen /LPF (None Seen); SQUAMOUS None Seen /LPF (0-3); URINE RBC 3-10 Few /HPF (0-2); URINE WBC-REFLEX >25 Many /HPF (0-5)
[2016-11-25] VITALS (25 sets, daily range): BP systolic 71–140; BP diastolic 37–103
[2016-11-25 05:37] LABS: HEMATOCRIT 23.2 % (42.0-52.0); HEMOGLOBIN 7.9 gm/dL (14.0-18.0); MCH 30.5 pg (26.0-34.0); MCHC 34.2 g/dL (28.0-37.0); MCV 89.2 fL (80.0-100.0); PLATELET COUNT 106 thou/uL (150-400); RDW 14.7 % (10.5-14.5); WBC 7.1 thou/uL (4.0-11.0)
[2016-11-25 05:39] LABS: MANUAL DIFF YES
[2016-11-25 06:02] LABS: ALBUMIN 1.2 g/dL (3.4-5.0); CALCIUM 6.3 mg/dL (8.5-10.1); CREATININE 3.8 mg/dL (0.7-1.3); MAGNESIUM 1.6 mg/dL (1.8-2.4); PHOSPHORUS 4.6 mg/dL (2.5-4.9); POTASSIUM 3.1 mmol/L (3.5-5.1)
[2016-11-25 10:13] LABS: ABSOLUTE NEUTROPHILS 6.7 thou/uL (1.4-8.2); TOTAL CELL COUNT 100
[2016-11-25 10:14] LABS: ANISOCYTOSIS 1+
[2016-11-26] VITALS (21 sets, daily range): BP systolic 62–161; BP diastolic 39–86
[2016-11-26 06:17] LABS: HEMATOCRIT 24.9 % (42.0-52.0); HEMOGLOBIN 8.7 gm/dL (14.0-18.0); MCH 31.1 pg (26.0-34.0); MCHC 34.8 g/dL (28.0-37.0); MCV 89.3 fL (80.0-100.0); RBC 2.79 mil/uL (4.50-6.00); RDW 14.8 % (10.5-14.5); WBC 8.6 thou/uL (4.0-11.0)
[2016-11-26 06:22] LABS: CALCIUM 6.3 mg/dL (8.5-10.1); CREATININE 3.6 mg/dL (0.7-1.3); POTASSIUM 3.2 mmol/L (3.5-5.1)
[2016-11-26 06:30] LABS: MANUAL DIFF YES
[2016-11-26 10:32] LABS: ABSOLUTE NEUTROPHILS 8.2 thou/uL (1.4-8.2); ANISOCYTOSIS 1+; TOTAL CELL COUNT 100
[2016-11-26 10:33] LABS: HYPOCHROMASIA 1+
[2016-11-26 11:46] LABS: PLATELET COUNT 74 thou/uL (150-400)
[2016-11-27 04:11] VITALS: BP 103/63
[2016-11-27 05:03] LABS: HEMATOCRIT 24.7 % (42.0-52.0); HEMOGLOBIN 8.4 gm/dL (14.0-18.0); MCH 30.5 pg (26.0-34.0); MCHC 33.9 g/dL (28.0-37.0); RBC 2.75 mil/uL (4.50-6.00); RDW 14.7 % (10.5-14.5); WBC 7.2 thou/uL (4.0-11.0)
[2016-11-27 05:20] LABS: CALCIUM 6.1 mg/dL (8.5-10.1); CREATININE 3.6 mg/dL (0.7-1.3); PHOSPHORUS 4.7 mg/dL (2.5-4.9)
[2016-11-27 05:22] LABS: POTASSIUM 2.9 mmol/L (3.5-5.1)
[2016-11-27 06:54] VITALS: BP 92/54
[2016-11-27 11:52] VITALS: BP 146/89
[2016-11-27 16:31] VITALS: BP 142/76
[2016-11-27 19:33] VITALS: BP 144/71
[2016-11-28 00:29] VITALS: BP 124/73
[2016-11-28 04:14] VITALS: BP 132/59
[2016-11-28 07:53] VITALS: BP 148/86
[2016-11-28] MEDS ORDERED: ATORVASTATIN CA40 MG PO (11:42)
[2016-11-28] MEDS ORDERED: VANCOMYCIN HCL10 GM PO (11:42)
[2016-11-28] MEDS ORDERED: ZOSYN 2.252.25 GM/51 IV (11:45)
[2016-11-28] MEDS ORDERED: METOPROLOL SUCC25 M1 PO (11:45)
[2016-11-28] MEDS ORDERED: PROTONIX IV40 MG IV PUSH (11:46)
[2016-11-28] MEDS ORDERED: ASPIRIN325 PO (11:52)
== END 2016-11-28 16:52 | DRG 474 ==
LOC: ICU 13:17 → 4W 11-26 21:10
PROVIDERS: Hospitalist; Internal Medicine Endocrinology, Diabetes & Metabolism; Internal Medicine Gastroenterology; Internal Medicine Nephrology; Nurse Practitioner; Orthopaedic Surgery Foot and Ankle Surgery; Specialist
PROC: 30233N1 Transfusion of Nonautologous Red Blood Cells into Peripheral Vein, Percutaneous Approach (ICD-10-PCS; principal; 2016-11-22)
PROC: 02HV33Z Insertion of Infusion Device into Superior Vena Cava, Percutaneous Approach (ICD-10-PCS; principal; 2016-11-22)
PROC: 0DJ08ZZ Inspection of Upper Intestinal Tract, Via Natural or Artificial Opening Endoscopic (ICD-10-PCS; 2016-11-23)
PROC: 30233R1 Transfusion of Nonautologous Platelets into Peripheral Vein, Percutaneous Approach (ICD-10-PCS; 2016-11-24)
PROC: 0Y6C0Z2 Detachment at Right Upper Leg, Mid, Open Approach (ICD-10-PCS; 2016-11-24)
DX: T87.89 Other complications of amputation stump (principal); E43 Unspecified severe protein-calorie malnutrition; L89.154 Pressure ulcer of sacral region, stage 4; I21.4 Non-ST elevation (NSTEMI) myocardial infarction; L89.894 Pressure ulcer of other site, stage 4; N18.5 Chronic kidney disease, stage 5; I12.0 Hypertensive chronic kidney disease with stage 5 chronic kidney disease or end stage renal disease; A04.7 Enterocolitis due to Clostridium difficile; N39.0 Urinary tract infection, site not specified; L97.819 Non-pressure chronic ulcer of other part of right lower leg with unspecified severity; E11.52 Type 2 diabetes mellitus with diabetic peripheral angiopathy with gangrene; I77.2 Rupture of artery; I69.354 Hemiplegia and hemiparesis following cerebral infarction affecting left non-dominant side; Z68.1 Body mass index [BMI] 19.9 or less, adult; E87.5 Hyperkalemia; D50.9 Iron deficiency anemia, unspecified; E78.5 Hyperlipidemia, unspecified; J44.9 Chronic obstructive pulmonary disease, unspecified; I25.10 Atherosclerotic heart disease of native coronary artery without angina pectoris; B95.62 Methicillin resistant Staphylococcus aureus infection as the cause of diseases classified elsewhere; R33.9 Retention of urine, unspecified; D69.6 Thrombocytopenia, unspecified; Y83.8 Other surgical procedures as the cause of abnormal reaction of the patient, or of later complication, without mention of misadventure at the time of the procedure; E11.622 Type 2 diabetes mellitus with other skin ulcer; L89.890 Pressure ulcer of other site, unstageable; M24.562 Contracture, left knee; M24.561 Contracture, right knee; K21.9 Gastro-esophageal reflux disease without esophagitis; D63.8 Anemia in other chronic diseases classified elsewhere; N40.0 Benign prostatic hyperplasia without lower urinary tract symptoms; I95.9 Hypotension, unspecified; Z89.512 Acquired absence of left leg below knee; Z89.511 Acquired absence of right leg below knee; I25.2 Old myocardial infarction; Z79.899 Other long term (current) drug therapy; Z79.02 Long term (current) use of antithrombotics/antiplatelets; Z79.82 Long term (current) use of aspirin; Z79.4 Long term (current) use of insulin; Z74.01 Bed confinement status; Z99.3 Dependence on wheelchair; Z82.49 Family history of ischemic heart disease and other diseases of the circulatory system
CPT/HCPCS: 10045; 10078; 27000; 50101; 50386; 51412; 53000; 56524; 56525; 57091; 62110; 62900